=== PATIENT | male | born 1995 ===

== ENCOUNTER 2025-04-13 11:02 | Outpatient (AMB) | payer BC, SELFPAY ==
--- NOTE | 2025-04-13 11:10 | MHC.PC.OV ---
Vital Signs 04/13/25 11:12 Height 5 ft 9.49 in Weight 155 lb 8 oz BMI 22.6 BP 110/70 Blood Pressure Location Lt brachial Position Sitting Pulse 56 Pulse Source Pulse Oximeter Temp 97.3 F Temp Source Temporal Artery Scan Pulse Oximetry (%) 98 Oxygen Delivery Method Room Air Intake Visit Reasons: Establish Care Intake Note: Patient is a new patient here to establish care for Asthma, lower abdominal right side pain, Testicular pain. Transferring care from [facility] Medical records have been requested and have not received. Americanization Teacher Required: No Starch Mangle Tender: Present Accompanied by: Father Allergies No Known Allergies Allergy (Verified 04/13/25 11:19) Tobacco use date assessed: 04/13/25 Dental Screening Dental Screen Date: 04/13/25 Did you have a dental visit in the last 12 months?: No Did you have a dental problem in the last 6 months where you did not have access to dental care?: No Was dental information given to patient?: No HPI HPI Comments History of Present Illness Details The patient is a 30-year-old male presenting to establish care and for a physical exam. Patient reports a right testicular lump that he 1st noticed a year ago. He states along becomes larger and firmer with straining work, then subsequently gets smaller on he is not working. Denies any history of trauma to the area. Associated of the lump, patient experiences intermittent right lower quadrant abdominal discomfort which also started a year ago and is exacerbated by straining at work. He denies any associated nausea, vomiting, constipation, changes in urination or blood in stool. Denies history of abdominal surgery. Denies known history of hernias. Patient also reports seasonal bloody noses in the winter from dryness. No significant past medical history. He is currently not on any prescription or [id number] medications. Surgical history remarkable for tonsillectomy. Family history significant for hypertension, and skin cancer in his grandfather. 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 Denies smoking. Drinks beer sporadically on weekends. Uses marijuana occasionally. Last doctor he has seen was his nursing student. 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 1. Little interest or pleasure in doing things: not at all 2. Feeling down, depressed, or hopeless: not at all 3. Trouble falling or staying asleep, or sleeping too much: not at all 4. Feeling tired or having little energy: not at all 5. Poor appetite or overeating: not at all 6. Feeling bad about yourself - or that you are a failure or have let yourself or your family down: not at all 7. Trouble concentrating on things, such as reading the newspaper or watching television: not at all 8. Moving or speaking so slowly that other people could have noticed. Or the opposite - being so fidgety or restless that you have been moving around a lot more than usual: not at all 9. Thoughts that you would be better off or of hurting yourself in some way: not at all Total score: 0 Depression Screening Interpretation: Negative Depression Screening Done: Yes Source: Developed by Drs. Jae Leone, Uyen Moreno, Warner Coles and colleagues, with an educational yadiel from [employer]. Thrive Questionnaire Date Thrive assessed: 04/13/25 I am a: Patient What is your living situation today?: I have a steady place to live Within the past 12 months, did the food you bought not last and you didn't have the money to get more?: Never true Within the past 12 months, did you worry whether your food would run out before you got money to buy more?: Never true Do you have trouble paying for medicines?: No Do you have trouble getting transportation to medical appointments?: No Do you have trouble paying your heating and electricity bill?: No Do you have trouble taking care of your child, family member or friend?: No Do you have trouble with day-to-day activities such as bathing, preparing meals, shopping, managing finances, etc.?: No Are you currently unemployed and looking for a job?: No Are you interested in more education?: No Please select the resources that you would like help with: None Currently or been in a relationship where the following occur: No concerns reported THRIVE Score: 0 AUDIT C Alcohol Use Questionnaire (AUDIT-C) 1. How often do you have a drink containing alcohol?: 2-4 times a month 2. How many drinks containing alcohol do you have on a typical day when you are drinking?: 7 to 9 3. How often do you have six or more drinks on one occasion?: Monthly Total Score: 7 GEORGIA-7 AMB Questionnaire GEORGIA-7 Date GEORGIA - 7 assessed: 04/13/25 Feeling nervous, anxious, or on edge: 0 = Not at all Not being able to stop or control worryin = Not at all Worrying too much about different things: 0 = Not at all Trouble relaxin = Not at all Being so restless that it is hard to sit still: 0 = Not at all Becoming easily annoyed or irritable: 0 = Not at all Feeling afraid as if something awful might happen: 0 = Not at all Total GE[place]GIA-7 score (0-4 normal; 5-9 mild; 10-14 moderate; 15-21 severe): 0 Source: Developed by Drs. Jae Leone, Uyen Moreno, Warner Coles and colleagues, with an educational yadiel from [employer]. Physical exam (Primary Care) Vital Signs: Last Vital Signs Temp 97.3 F 04/13/25 11:12 Pulse 56 04/13/25 11:12 BP 110/70 04/13/25 11:12 Pulse Ox 98 04/13/25 11:12 Oxygen Delivery Method Room Air 04/13/25 11:12 General: Well-appearing, alert, oriented ?3, in no acute distress. HEENT: Normocephalic, atraumatic, PERRLA, EOMI, no scleral icterus. External ears normal, tympanic membranes intact bilaterally, no erythema or effusion. Nares patent, normal mucosa pink, no discharge. No oral lesions, or pharyngeal erythema. Neck Supple. Cardiovascular: RRR, S1-S2 appreciated, no murmurs, rubs or gallops. Respiratory: Lungs clear to auscultation bilaterally, no wheezes, rales or rhonchi. Abdomen: Soft, nontender, nondistended. Normoactive bowel sounds. no erythema or hernia appreciated. Genitourinary: Penile and scrotal exam within normal limits. No swelling, erythema or tenderness appreciated. No masses or nodules appreciated. MSK: Normal range of motion in all extremities, no joint swelling or deformity. Skin: Intact, no rashes or lesions Neurologic: Alert and oriented X3, cranial nerves II?XII grossly intact, sensation and strength intact in bilateral lower and upper extremities. Psychiatry: Normal mood and affect. Appropriate behavior, good eye contact. BMI result Body Mass Index 22.6 Tobacco/Smoking Status: Tobacco use Status Tobacco use date assessed 04/13/25 04/13/25 11:22 Patient Tobacco Use Status Never used Tobacco 04/13/25 11:22 e-Cigarette/Vaping Use Never Used 04/13/25 11:22 PHQ-9: PHQ-9 Score PHQ-9: Total score 0 04/13/25 11:22 Depression Screening Interpretation: Negative Thrive Assessment: Date of Thrive Assessment Date Thrive assessed 04/13/25 04/13/25 11:22 Currently or been in a relationship where the following occur: No concerns reported Coding Level of Care Code New Pt Level 4 (58871) New Pt Prev Care 18-39yr(28096 Diagnoses Establishing care with new doctor, encounter for Z76.89 Annual physical exam Z00.00 Testicle lump N50.89 Assessment & Plan Assessment & Plan (1) Establishing care with new doctor, encounter for: Code(s): Z76.89 - Persons encountering health services in other specified circumstances Plan: Patient is a 30-year-old male with no significant past medical history presenting to establish care. (2) Annual physical exam: Code(s): Z00.00 - Encounter for general adult medical examination without abnormal findings Plan: - obtain blood work: cbc, cmp, lipid panel - due for Tdap - Patient reports seasonal bloody noses in the winter from dryness. recommended use a humidifier at home to help alleviate the dryness. (3) Testicle lump: Code(s): N50.89 - Other specified disorders of the male genital organs Plan: Patient reports right testicular lump and associated intermittent right lower quadrant abdominal discomfort that has been present for a year, that worsens with straining. ddx: inguinal hernia, intrinsic testicular pathology. - obtain US testicles and CT abd/pelvis for further evaluation Orders: Orders Complete Blood Count Auto Diff Today Z00.00 - Encounter for general adult medical examination without abnormal findings Comprehensive Met. Panel Today Z00.00 - Encounter for general adult medical examination without abnormal findings CT abdomen pelvis wo IV con Today K40.90 - Unilateral inguinal hernia, without obstruction or gangrene, not specified as recurrent Lipid Panel with Reflex Today Z00.00 - Encounter for general adult medical examination without abnormal findings US scrotum Today N50.89 - Other specified disorders of the male genital organs
[2025-04-13 11:12] VITALS: BP 110/70; PULSE 56; TEMP 36.3; O2SAT 98; BMI 22.6
--- OUTSIDE RECORDS SUMMARY | 2025-04-13 13:38 | XMS_ITS | Encounter Summary ---
Author Organization [facility] Address [address] [place] [address] Phone Care Team Providers Care Special Needs Teacher Name Role Phone Tiffanie Freeman MD Primary Care Provider [phone] Encounter Details Date Type Department Care Team (Late st Contact Info) Description 05/13/2011 Documentation [facility] [place] Family Medicine [address] [place], [place] [id number] Family Medicine, Physician [address] [place] [address] Social History Tobacco Use Types Packs/Day Years Used Date Smoking Tobacco: Never Assessed Sex and Gender Information Value Date Recorded Sex Assigned at Not on file Legal Sex Male 4:43 PM EDT Gender Identity Not on file Sexual Orientation Not on file documented as of this encounter Plan of Treatment Not on file documented as of this encounter Visit Diagnoses Not on filedocumented in this encounter Care Teams Special Needs Teacher Relationship Specialty Start Date End Date Tiffanie Freeman MD [address] [place] [address] PCP - General 01/10/17 09/10/22 documented as of this encounter
--- OUTSIDE RECORDS SUMMARY | 2025-04-13 13:38 | XMS_ITS | Encounter Summary ---
Author Organization [facility] Address [address] [place] [address] Phone Care Team Providers Care Supervisor Sewing Department Name Role Phone Tiffanie Freeman MD Primary Care Provider [phone] Encounter Details Date Type Department Care Team (Late st Contact Info) Description 01/16/2017 Conversion Encounter [facility] [address] [place] [address] Social History Tobacco Use Types Packs/Day Years Used Date Smoking Tobacco: Never Comments:Never smoker Sex and Gender Information Value Date Recorded Sex Assigned at Not on file Legal Sex Male 4:43 PM EDT Gender Identity Not on file Sexual Orientation Not on file documented as of this encounter Plan of Treatment Not on file documented as of this encounter Visit Diagnoses Not on filedocumented in this encounter Care Teams Supervisor Sewing Department Relationship Specialty Start Date End Date Tiffanie Freeman MD [address] [place] [address] PCP - General 01/10/17 09/10/22 documented as of this encounter
--- OUTSIDE RECORDS SUMMARY | 2025-04-13 13:38 | XMS_ITS | Encounter Summary ---
Author Organization [facility] Address [address] [place] [address] Phone Care Team Providers Care Parts Lister Name Role Phone Tiffanie Freeman MD Primary Care Provider [phone] Encounter Details Date Type Department Care Team (Late st Contact Info) Description 04/19/2011 Documentation [facility] [place] [address] [place], [place] [phone] Family Medicine, Physician [address] [place] [address] Social History Tobacco Use Types Packs/Day Years [...] on filedocumented in this encounter Care Teams Parts Lister Relationship Specialty Start Date End Date Tiffanie Freeman MD [address] [place] [address] PCP - General 01/10/17 09/10/22 documented as of this encounter
--- OUTSIDE RECORDS SUMMARY | 2025-04-13 13:38 | XMS_ITS | Clinical Summary ---
Author Organization [facility] Address [address] [place] [address] Phone Care Team Providers Care Bottler Helper Name Role Phone Unavailable Primary Care Provider Unavailabl e Immunizations Immunization Administration Dates Next Due DTaP 5 12/31/2001, 9,1997, 998,1997 Hep B, ped/adol 01/17/1998,1997,1997 Hib (PRP-T) 06/23/1998, 8,1997, 997 IPV 12/31/2001 MMR 12/31/2001,03/23/1998 Meningococcal Conj (Menactra) MCV4P 08/15/2009 OPV 1997,1997,1997 Tdap 08/15/2009 Varicella 08/15/2009,03/23/1998 Family History Relation Name Status Comments Father Alive Father: Alive a nd well Maternal Grandmother Materna l grandmother: arthritis Mother Alive Mother: Alive a nd well Other grandfather: As thma Paternal Grandfather Paterna l grandfather: arthritis Sister Alive Sister: Alive a nd well Social History Tobacco Use Types Packs/Day Years Used Date Smoking Tobacco: Never Comments:Never smoker Sex and Gender Information Value Date Recorded Sex Assigned at Not on file Legal Sex Male 4:43 PM EDT Gender Identity Not on file Sexual Orientation Not on file Last Filed Vital Signs Vital Sign Reading Time Taken Comments Blood Pressure 139/79 09/04/2016 12:00 AM EDT Pulse 55 09/04/2016 12:00 AM EDT Temperature 37.3 C (99.2 F) 08/06/2016 12:00 AM EST Respiratory Rate - - Oxygen Saturation 99% 04/27/2011 12:00 AM EST Inhaled Oxygen Concentration - - Weight 62.7 kg (138 lb 3.2 oz) 09/04/2016 12:00 AM EDT Height 175.3 cm (5' 9 ) 09/04/2016 12:00 AM EDT Body Mass Index 20.41 09/04/2016 12:00 AM EDT Plan of Treatment Health Maintenance Due Date Last Done Comments DTaP,Tdap,and Td Vaccines (7 - Td or Tdap) 08/16/2019 08/15/2009, 12/31/2001, 09/21/1998, Additional history exists HPV Vaccines (1 - 3-dose SCDM series) 2024 Influenza Vaccines (#1) 2024 COVID-19 Vaccine ( - 2024- season) 2025 Hepatitis B Vaccines Completed 01/17/1998, 1997, 1997 HIB Vaccines Completed 06/23/1998, 09/1997, 1997, Additional history exists IPV Vaccines Completed 12/31/2001, 09/1997, 1997, Additional history exists MMR Vaccines Completed 12/31/2001, 03/23/1998 Meningococcal Vaccine Aged Out 08/15/2009 No ernesto anamaria eligible based on patient's age to complete this topic Varicella Vaccines Completed 08/15/2009, 03/23/1998 Hepatitis A Vaccines Aged Out No long er eligible based on patient's age to complete this topic Men B Vaccine Aged Out No longer elig ible based on patient's age to complete this topic Pneumococcal Vaccine Aged Out No long er eligible based on patient's age to complete this topic
--- OUTSIDE RECORDS SUMMARY | 2025-04-13 13:39 | XMS_ITS | Clinical Summary ---
Author Organization [facility] Address [address] [address] Phone Care Team Providers Care Chief Dispatcher Name Role Phone Pcp, Unknown Primary Care Provider Unavailabl e Allergies No known active allergies Medications No known medications Social History Tobacco Use Types Packs/Day Years Used Date Smoking Tobacco: Never Smokeless Tobacco: Never Tobacco Cessation:Counseling Given: Not Answered Alcohol Use Standard Drinks/Week Comments Yes 24 (1 standard drink = 0.6 oz pu re alcohol) Education Answer Date Recorded Are you interested in more education? Not on roxanne e 01/27/2023 Are you concerned about learning? Not on file 01/27/2023 No 01/27/2023 No 01/27/2023 Digital Access Answer Date Recorded No 01/27/2023 No 01/27/2023 Reliable internet access at home? Not on file 01/27/2023 Device with a working camera? Not on file Intimate Partner Violence Answer Date R ecorded Are you denied basic needs s uch as food, clothing, or medical care? No 01/27/2023 In the past 12 months have y ou been in a relationship with a person who hurts, threatens, or tries to control you? No 01/27/2023 Are you denied basic needs s uch as food, clothing, or medical care? No 01/27/2023 In the past 12 months have y ou been in a relationship with a person who hurts, threatens, or tries to control you? No 01/27/2023 Sex and Gender Information Value Date Recorded Sex Assigned at Male 01/27/2023 4:17 PM EDT Legal Sex Male 4:08 PM EDT Gender Identity Male 01/27/2023 4:17 PM EDT Sexual Orientation Not on file Last Filed Vital Signs Vital Sign Reading Time Taken Comments Blood Pressure 140/69 01/27/2023 10:05 PM EDT Pulse 66 01/27/2023 10:05 PM EDT Temperature 36.7 C (98.1 F) 01/27/2023 10:05 PM EDT Respiratory Rate 16 01/27/2023 10:05 PM EDT Oxygen Saturation 98% 01/27/2023 10:05 PM EDT Inhaled Oxygen Concentration - - Weight 68 kg (150 lb) 01/27/2023 4:14 PM EDT Height 172.7 cm (5' 8 ) 01/27/2023 4:14 PM EDT Body Mass Index 22.81 01/27/2023 4:14 PM EDT Plan of Treatment Health Maintenance Due Date Last Done Comments DEPRESSION SCREENING 2009 HEPATITIS C SCREENING 2015 HIV ONE-TIME SCREENING (18-6 5 YEARS) 2015 Adult Td,Tdap Booster 08/16/2019 08/15/2009 INFLUENZA VACCINE (#1) 2024 COVID-19 VACCINE (1 - 2024-2 6 season) 2025 SMOKING STATUS SCREENING (On ce After 26 Yrs) Completed 01/27/2023 HEPATITIS A VACCINES Aged Out No long er eligible based on patient's age to complete this topic HIB VACCINES Aged Out No longer eligi ble based on patient's age to complete this topic IPV VACCINES Aged Out No longer eligi ble based on patient's age to complete this topic MENINGOCOCCAL VACCINES (ACWY) Aged Out No longer eligible based on patient's age to complete this topic MENINGOCOCCAL VACCINES (B) Aged Out N o longer eligible based on patient's age to complete this topic PNEUMOCOCCAL VACCINES (0-49 years) Aged Out No longer eligible based on patient's age to complete this topic Medical Devices [place] [id number] [facility] OUT OF STATE PPO BLUE CROSS OUT OF STATE PPO BLUE CROSS OUT OF STATE PPO BLUE CROSS OUT OF STATE PPO BLUE CROSS OUT OF STATE PPO Care Teams Chief Dispatcher Relationship Specialty Start Date End Date Pcp, Unknown PCP - General 01/27/23 Additional Source Comments The information contained in this document represents components of the legal health record. It is not the complete legal health record.[facility]
--- OUTSIDE RECORDS SUMMARY | 2025-04-13 13:39 | XMS_ITS | Encounter Summary ---
Author Organization [facility] Address [address] [place] [address] Phone Care Team Providers Care Substance Abuse Nurse Name Role Phone Tiffanie Freeman MD Primary Care Provider [phone] Encounter Details Date Type Department Care Team (Late st Contact Info) Description 08/20/2011 Documentation [facility] [place] Family Medicine [address] [place], [place] [phone] Family Medicine, Physician [address] [place] [address] Social History Tobacco Use Types Packs/Day Years [...] on filedocumented in this encounter Care Teams Substance Abuse Nurse Relationship Specialty Start Date End Date Tiffanie Freeman MD [address] [facility] [place] [address] PCP - General 01/10/17 09/10/22 documented as of this encounter
--- OUTSIDE RECORDS SUMMARY | 2025-04-13 13:39 | XMS_ITS | Encounter Summary ---
Author Organization [facility] Address [address] [place] [address] Phone Care Team Providers Care Kettle Loader Name Role Phone Tiffanie Freeman MD Primary Care Provider [phone] Encounter Details Date Type Department Care Team (Late st Contact Info) Description 06/05/2011 Documentation [facility] [place] Family Medicine [address] [place], [place] [phone] Family Medicine, Physician [address] [place] [address] Social History Tobacco Use Types Packs/Day Years [...] on filedocumented in this encounter Care Teams Kettle Loader Relationship Specialty Start Date End Date Tiffanie Freeman MD [address] [facility] [place] [address] PCP - General 01/10/17 09/10/22 documented as of this encounter
--- OUTSIDE RECORDS SUMMARY | 2025-04-13 13:39 | XMS_ITS | Encounter Summary ---
Author Organization [facility] Address [address] [place] [address] Phone Care Team Providers Care Law Firm Consultant Name Role Phone Tiffanie Freeman MD Primary Care Provider [phone] Encounter Details Date Type Department Care Team (Late st Contact Info) Description 12/19/2011 Documentation [facility] [place] [address] [place], [place] [phone] Family Medicine, Physician [address] [place] [address] Social History Tobacco Use Types Packs/Day Years [...] on filedocumented in this encounter Care Teams Law Firm Consultant Relationship Specialty Start Date End Date Tiffanie Freeman MD [address] [facility] [place] [address] PCP - General 01/10/17 09/10/22 documented as of this encounter
--- OUTSIDE RECORDS SUMMARY | 2025-04-13 13:39 | XMS_ITS | Encounter Summary ---
Author Organization [facility] Address [address] [place] [address] Phone Care Team Providers Care Chief Executive Or Managing Director Name Role Phone Tiffanie Freeman MD Primary Care Provider [phone] Encounter Details Date Type Department Care Team (Late st Contact Info) Description 08/23/2009 Documentation [facility] [place] [address] [place], [place] [phone] Family Medicine, Physician [address] [place] [address] Social History Tobacco Use Types Packs/Day Years [...] on filedocumented in this encounter Care Teams Chief Executive Or Managing Director Relationship Specialty Start Date End Date Tiffanie Freeman MD [address] [facility] [place] [address] PCP - General 01/10/17 09/10/22 documented as of this encounter
--- OUTSIDE RECORDS SUMMARY | 2025-04-13 13:39 | XMS_ITS | Encounter Summary ---
Author Organization [facility] Address [address] [place] [address] Phone Care Team Providers Care Reinsurance Accountant Name Role Phone Tiffanie Freeman MD Primary Care Provider [phone] Encounter Details Date Type Department Care Team (Late st Contact Info) Description 06/05/2011 Documentation [facility] [place] [address] [place], [place] [phone] Family Medicine, Physician [address] [place] [address] Social History Tobacco Use Types Packs/Day Years [...] on filedocumented in this encounter Care Teams Reinsurance Accountant Relationship Specialty Start Date End Date Tiffanie Freeman MD [address] [facility] [place] [address] PCP - General 01/10/17 09/10/22 documented as of this encounter
== END 2025-04-13 11:51 | disposition home or self-care (01) ==
LOC: HO.HMCH 11:03
PROVIDERS: Visit Provider Student in an Organized Health Care Education/Training Program
DX: Z00.00 Encounter for general adult medical examination without abnormal findings (principal); N50.89 Other specified disorders of the male genital organs

== ENCOUNTER 2025-05-02 10:36 | Outpatient (REF) | payer BC, SELFPAY ==
[2025-05-02 13:23] LABS: MANUAL DIFF FLAG NO
--- OUTSIDE RECORDS SUMMARY | 2025-05-02 13:27 | XMS_ITS | Encounter Summary ---
Author Organization [facility] Address [address] [place] [address] Phone Care Team Providers Care Associate Technician Name Role Phone Tiffanie Freeman MD Primary Care Provider [phone] Encounter Details Date Type Department Care Team (Late st Contact Info) Description 05/13/2011 Documentation [facility] [place] [address] [place], [place] [id number] Family Medicine, Physician [address] [place] [address] Social History Tobacco Use Types Packs/Day Years [...] on filedocumented in this encounter Care Teams Associate Technician Relationship Specialty Start Date End Date Tiffanie Freeman MD 150 [place] [address] PCP - General 01/10/17 09/10/22 documented as of this encounter
--- OUTSIDE RECORDS SUMMARY | 2025-05-02 13:27 | XMS_ITS | Encounter Summary ---
Author Organization [facility] Address [address] [place] [address] Phone Care Team Providers Care Riveter Hand Name Role Phone Tiffanie Freeman MD Primary Care Provider [phone] Encounter Details Date Type Department Care Team (Late st Contact Info) Description 01/16/2017 Conversion Encounter [facility] [address] [place] [address] Social History Tobacco Use Types Packs/Day Years [...] on filedocumented in this encounter Care Teams Riveter Hand Relationship Specialty Start Date End Date Tiffanie Freeman MD 150 [place] [address] PCP - General 01/10/17 09/10/22 documented as of this encounter
--- OUTSIDE RECORDS SUMMARY | 2025-05-02 13:28 | XMS_ITS | Encounter Summary ---
Author Organization [facility] Address [address] [place] [address] Phone Care Team Providers Care Strategy Manager Name Role Phone Tiffanie Freeman MD Primary Care Provider [phone] Encounter Details Date Type Department Care Team (Late st Contact Info) Description 12/19/2011 Documentation [facility] [place] [address] [place], [place] [id number] Family Medicine, Physician [address] [place] [address] Social History Tobacco Use Types Packs/Day Years [...] on filedocumented in this encounter Care Teams Strategy Manager Relationship Specialty Start Date End Date Tiffanie Freeman MD 150 [place] [address] PCP - General 01/10/17 09/10/22 documented as of this encounter
--- OUTSIDE RECORDS SUMMARY | 2025-05-02 13:28 | XMS_ITS | Encounter Summary ---
Author Organization [facility] Address [address] [place] [address] Phone Care Team Providers Care Investment Specialist Name Role Phone Tiffanie Freeman MD Primary Care Provider [phone] Encounter Details Date Type Department Care Team (Late st Contact Info) Description 06/05/2011 [place] [facility] [place] [address] [place], [place] [id number] Family Medicine, Physician [address] [place] [address] Social History Tobacco Use Types Packs/Day Years [...] on filedocumented in this encounter Care Teams Investment Specialist Relationship Specialty Start Date End Date Tiffanie Freeman MD 150 [facility] [place] [address] PCP - General 01/10/17 09/10/22 documented as of this encounter
--- OUTSIDE RECORDS SUMMARY | 2025-05-02 13:28 | XMS_ITS | Encounter Summary ---
Author Organization [facility] Address [address] [place] [address] Phone Care Team Providers Care Sludge Filtration Operator Name Role Phone Tiffanie Freeman MD Primary Care Provider [phone] Encounter Details Date Type Department Care Team (Late st Contact Info) Description 08/20/2011 Documentation [facility] [place] [address] [place], [place] [phone] Family Medicine, Physician [address] [place] [address] Social History Tobacco Use Types Packs/Day Years [...] on filedocumented in this encounter Care Teams Sludge Filtration Operator Relationship Specialty Start Date End Date Tiffanie Freeman MD 150 [place] [address] PCP - General 01/10/17 09/10/22 documented as of this encounter
--- OUTSIDE RECORDS SUMMARY | 2025-05-02 13:28 | XMS_ITS | Encounter Summary ---
Author Organization [facility] Address [address] [place] [address] Phone Care Team Providers Care Computed Tomography Scanner Operator Name Role Phone Tiffanie Freeman MD Primary Care Provider [phone] Encounter Details Date Type Department Care Team (Late st Contact Info) Description 06/05/2011 Documentation [facility] [place] [facility] [place] [address] [place], [place] [phone] Family Medicine, Physician [address] [place] [address] Social History Tobacco Use Types Packs/Day Years [...] on filedocumented in this encounter Care Teams Computed Tomography Scanner Operator Relationship Specialty Start Date End Date Tiffanie Freeman MD 150 [place] [address] PCP - General 01/10/17 09/10/22 documented as of this encounter
--- OUTSIDE RECORDS SUMMARY | 2025-05-02 13:28 | XMS_ITS | Encounter Summary ---
Author Organization [facility] Address [address] [place] [address] Phone Care Team Providers Care Winder Operator Name Role Phone Tiffanie Freeman MD Primary Care Provider [phone] Encounter Details Date Type Department Care Team (Late st Contact Info) Description 04/19/2011 Documentation [facility] [place] Medicine [address] [place], [place] [phone] Family Medicine, Physician [address] [place] [address] Social History Tobacco Use Types Packs/Day Years [...] on filedocumented in this encounter Care Teams Winder Operator Relationship Specialty Start Date End Date Tiffanie Freeman MD 150 [place] [address] PCP - General 01/10/17 09/10/22 documented as of this encounter
--- OUTSIDE RECORDS SUMMARY | 2025-05-02 13:28 | XMS_ITS | Encounter Summary ---
Author Organization [facility] Address [address] [place] [address] Phone Care Team Providers Care Trouble Dispatcher Name Role Phone Tiffanie Freeman MD Primary Care Provider [phone] Encounter Details Date Type Department Care Team (Late st Contact Info) Description 08/23/2009 Documentation [facility] [place] [address] [place], [place] [phone] Family Medicine, Physician [address] [place] [address] Social History Tobacco Use Types Packs/Day Years [...] on filedocumented in this encounter Care Teams Trouble Dispatcher Relationship Specialty Start Date End Date Tiffanie Freeman MD 150 [facility] [place] [address] PCP - General 01/10/17 09/10/22 documented as of this encounter
--- OUTSIDE RECORDS SUMMARY | 2025-05-02 13:28 | XMS_ITS | Clinical Summary ---
Author Organization [facility] Address [address] [place] [address] Phone Care Team Providers Care Enamel Burner Name Role Phone Unavailable Primary Care Provider [...]
[2025-05-02 13:36] LABS: Hematocrit 42.9 % (42.0-52.0); Hemoglobin 14.8 g/dl (14.0-18.0); Imm Gran Abs Auto 0.01 X10*3/uL (0.00-0.03); Imm Gran Pct Auto 0.2 % (0.0-0.4); Lymphocytes Absolute Auto 1.7 X10*3/uL (1.2-4.9); Mean Corpuscular HGB Conc 34.5 g/dl (31.0-36.0); Mean Corpuscular Hemoglobin 29.7 pg (27.0-33.0); Mean Corpuscular Volume 86.1 fL (80.0-98.0); NRBC Abs Auto 0.000 X10*3/uL (0.0-0.012); NRBC Pct Auto 0.0 /100WBC (0.0-0.2); Platelet Count 277 X10*3/uL (160-400); Red Blood Count 4.98 X10*6/uL (4.60-5.80); White Blood Count 4.7 X10*3/uL (4.8-10.8)
[2025-05-02 14:04] LABS: Alanine Aminotransferase 30 U/L (0-40); Albumin Level 4.8 g/dL (3.5-5.0); Alkaline Phosphatase 60 U/L (39-117); Anion Gap 10 (12-20); Aspartate Amino Transferase 24 U/L (5-37); Blood Urea Nitrogen 15 mg/dL (9-16); Calcium 9.2 mg/dL (8.4-10.2); Carbon Dioxide 28 mmol/L (22-29); Chloride 109 mmol/L (96-108); Cholesterol 146 mg/dL (<200); Estimated Glomerular Filt Rate > 60; HDL Cholesterol 52 mg/dL (>40); Potassium 4.4 mmol/L (3.3-5.1); Sodium 143 mmol/L (135-145); Total Protein 6.8 g/dL (6.5-8.0); Triglycerides 65 mg/dL (<150)
[2025-05-02 14:21] LABS: Reflex LDLD? No
== END 2025-05-02 10:37 | disposition home or self-care (01) ==
LOC: HO.HMGCLDS 10:36
PROVIDERS: PCP Student in an Organized Health Care Education/Training Program; Visit Provider Student in an Organized Health Care Education/Training Program
DX: Z00.00 Encounter for general adult medical examination without abnormal findings (principal); Z13.6 Encounter for screening for cardiovascular disorders
CPT/HCPCS: 36415; 80053; 80061; 85025

== ENCOUNTER 2025-05-16 14:52 | Outpatient (REF) | payer BC, SELFPAY ==
--- NOTE | ~2025-05-16 | US_ITS ---
EXAMINATION: US SCROTUM CLINICAL INFORMATION: Lump. Evaluate. COMPARISON: None available. TECHNIQUE: A sonogram of the scrotum was performed assessing field-scale appearance and color Doppler flow. Spectral Doppler analysis of the arterial and venous flow were performed in the testes bilaterally. FINDINGS: RIGHT: Right testicle measures 4.7 x 3.3 x 2.5 cm, volume 20.7 mL. No focal testicular parenchymal lesions are visualized. Spectral Doppler analysis of the arterial and venous flow is normal in the right testis. Right epididymal head is normal in size. There is a complex right epididymal head cyst measuring 4.1 x 3.7 x 4.2 cm, correlating with the palpable abnormality. No right hydrocele or varicocele is seen. Right epididymal Doppler flow is normal. LEFT: Left testicle measures 4.5 x 2.4 x 3.2 cm, volume 18.2 mL. No focal testicular parenchymal lesions are visualized. Spectral Doppler analysis of the arterial and venous flow is normal in the left testis. Left epididymal head is normal in size. No left hydrocele or varicocele is seen. Left epididymal Doppler flow is normal. US/US scrotum IMPRESSION: 1. Normal testicles bilaterally. 2. Complex right epididymal head cyst measuring 4.1 x 3.7 x 4.2 cm, correlating with the focus of palpable concern. This finding is benign. 3. Normal left epididymis. 4. No evidence of significant hydrocele on either side. Electronically signed by: Miguel Quezada MD 05/16/2025 04:59 PM [facility]
--- OUTSIDE RECORDS SUMMARY | 2025-05-16 21:23 | XMS_ITS | Encounter Summary ---
Author Organization [facility] Address [address] [place] [address] Phone Care Team Providers Care Kitchen And Counter Worker Name Role Phone Tiffanie Freeman MD Primary Care Provider [phone] Encounter Details Date Type Department Care Team (Late st Contact Info) Description 01/16/2017 Conversion Encounter [facility] 150 [place] [address] Social History Tobacco Use Types Packs/Day Years [...] on filedocumented in this encounter Care Teams Kitchen And Counter Worker Relationship Specialty Start Date End Date Tiffanie Freeman MD 150 [place] [address] PCP - General 01/10/17 09/10/22 documented as of this encounter
--- OUTSIDE RECORDS SUMMARY | 2025-05-16 21:23 | XMS_ITS | Encounter Summary ---
Author Organization [facility] Address [address] [place] [address] Phone Care Team Providers Care Gis Engineer Name Role Phone Tiffanie Freeman MD Primary Care Provider [phone] Encounter Details Date Type Department Care Team (Late st Contact Info) Description 04/19/2011 Documentation [facility] [place] [address] [place], [place] [phone] Family Medicine, Physician [address] [place] [address] Social History Tobacco Use Types Packs/Day Years [...] on filedocumented in this encounter Care Teams Gis Engineer Relationship Specialty Start Date End Date Tiffanie Freeman MD 150 [place] [address] PCP - General 01/10/17 09/10/22 documented as of this encounter
--- OUTSIDE RECORDS SUMMARY | 2025-05-16 21:23 | XMS_ITS | Clinical Summary ---
Author Organization [facility] Address [address] [place] [address] Phone Care Team Providers Care Head Grinder Name Role Phone Unavailable Primary Care Provider [...]
--- OUTSIDE RECORDS SUMMARY | 2025-05-16 21:23 | XMS_ITS | Encounter Summary ---
Author Organization [facility] Address [address] [place] [address] Phone Care Team Providers Care Case Packer And Sealer Name Role Phone Tiffanie Freeman MD Primary Care Provider [phone] Encounter Details Date Type Department Care Team (Late st Contact Info) Description 05/13/2011 Documentation [facility] [place] [address] [place], [place] [id number] Family Medicine, Physician [address] [place] [address] Social History Tobacco Use Types Packs/Day Years [...] on filedocumented in this encounter Care Teams Case Packer And Sealer Relationship Specialty Start Date End Date Tiffanie Freeman MD 150 [facility] [address] PCP - General 01/10/17 09/10/22 documented as of this encounter
--- OUTSIDE RECORDS SUMMARY | 2025-05-16 21:24 | XMS_ITS | Encounter Summary ---
Author Organization [facility] Address [address] [place] [address] Phone Care Team Providers Care Scoop Driver Name Role Phone Tiffanie Freeman MD Primary Care Provider [phone] Encounter Details Date Type Department Care Team (Late st Contact Info) Description 06/05/2011 Documentation [facility] [place] [address] [place], [place] [phone] Family Medicine, Physician [address] [place] [address] Social History Tobacco Use Types Packs/Day Years [...] on filedocumented in this encounter Care Teams Scoop Driver Relationship Specialty Start Date End Date Tiffanie Freeman MD 150 [facility] [place] [address] PCP - General 01/10/17 09/10/22 documented as of this encounter
--- OUTSIDE RECORDS SUMMARY | 2025-05-16 21:24 | XMS_ITS | Encounter Summary ---
Author Organization [facility] Address [address] [place] [address] Phone Care Team Providers Care Mirror Framer Name Role Phone Tiffanie Freeman MD Primary Care Provider [phone] Encounter Details Date Type Department Care Team (Late st Contact Info) Description 06/05/2011 Documentation [facility] [place] [address] [place], [place] [phone] Family Medicine, Physician [address] [place] [address] Social History Tobacco Use Types Packs/Day Years [...] on filedocumented in this encounter Care Teams Mirror Framer Relationship Specialty Start Date End Date Tiffanie Freeman MD 150 [facility] [place] [address] PCP - General 01/10/17 09/10/22 documented as of this encounter
--- OUTSIDE RECORDS SUMMARY | 2025-05-16 21:24 | XMS_ITS | Clinical Summary ---
Author Organization [facility] Address [address] [address] Phone Care Team Providers Care Receiving Team Member Name Role Phone Pcp, Unknown Primary Care [...] [place] [id number] [facility] PPO Care Teams Receiving Team Member Relationship Specialty Start Date End Date Pcp, Unknown PCP - General 01/27/23 Additional Source Comments The information contained in this document represents components of the legal health record. It is not the complete legal health record.[facility]
--- OUTSIDE RECORDS SUMMARY | 2025-05-16 21:24 | XMS_ITS | Encounter Summary ---
Author Organization [facility] Address [address] [place] [address] Phone Care Team Providers Care Children'S Author Name Role Phone Tiffanie Freeman MD Primary Care Provider [phone] Encounter Details Date Type Department Care Team (Late st Contact Info) Description 08/23/2009 Documentation [facility] [place] [address] [place], [place] [phone] Family Medicine, Physician [address] [place] [address] Social History Tobacco Use Types Packs/Day Years [...] on filedocumented in this encounter Care Teams Children'S Author Relationship Specialty Start Date End Date Tiffanie Freeman MD [address] [facility] [place] [address] PCP - General 01/10/17 09/10/22 documented as of this encounter
--- OUTSIDE RECORDS SUMMARY | 2025-05-16 21:24 | XMS_ITS | Encounter Summary ---
Author Organization [facility] Address [address] [place] [address] Phone Care Team Providers Care Billing Machine Operator Name Role Phone Tiffanie Freeman MD Primary Care Provider [phone] Encounter Details Date Type Department Care Team (Late st Contact Info) Description 08/20/2011 Documentation [facility] [place] [address] [place], [place] [phone] Family Medicine, Physician [address] [place] [address] Social History Tobacco Use Types Packs/Day Years [...] on filedocumented in this encounter Care Teams Billing Machine Operator Relationship Specialty Start Date End Date Tiffanie Freeman MD [address] [place] [address] PCP - General 01/10/17 09/10/22 documented as of this encounter
--- OUTSIDE RECORDS SUMMARY | 2025-05-16 21:24 | XMS_ITS | Encounter Summary ---
Author Organization [facility] Address [address] [place] [address] Phone Care Team Providers Care Bureau Director Name Role Phone Tiffanie Freeman MD Primary Care Provider Encounter Details Date Type Department Care Team (Late st Contact Info) Description 12/19/2011 Documentation [facility] [place] [address] [place], [place] [phone] Family Medicine, Physician [address] [place] [address] Social History Tobacco Use Types Packs/Day Years [...] on filedocumented in this encounter Care Teams Bureau Director Relationship Specialty Start Date End Date Tiffanie Freeman MD 150 [place] [address] PCP - General 01/10/17 09/10/22 documented as of this encounter
== END 2025-05-16 14:53 | disposition home or self-care (01) ==
LOC: HO.US 14:52
PROVIDERS: PCP Student in an Organized Health Care Education/Training Program; Visit Provider Student in an Organized Health Care Education/Training Program
DX: N50.89 Other specified disorders of the male genital organs (principal)
CPT/HCPCS: 76870

== ENCOUNTER → 2025-05-16 14:57 | Outpatient (BNV) | payer BC, SELFPAY | PROVIDERS: PCP Student in an Organized Health Care Education/Training Program; Visit Provider Radiology Diagnostic Radiology | DX: N50.3 Cyst of epididymis (principal) | CPT/HCPCS: 76870 ==